=== PATIENT | female | born 1985 | race Caucasian/White ===

== ENCOUNTER 2019-05-12 12:49 | Emergency (ER) | payer SELFPAY | END 2019-05-12 15:25 | disposition home or self-care (01) | PROVIDERS: Emergency Provider Family Medicine; Visit Provider Family Medicine | DX: R00.2 Palpitations (principal); S22.42XA Multiple fractures of ribs, left side, initial encounter for closed fracture; S22.22XA Fracture of body of sternum, initial encounter for closed fracture; J01.90 Acute sinusitis, unspecified; V89.2XXA Person injured in unspecified motor-vehicle accident, traffic, initial encounter; Z86.73 Personal history of transient ischemic attack (TIA), and cerebral infarction without residual deficits; Z85.828 Personal history of other malignant neoplasm of skin; F17.210 Nicotine dependence, cigarettes, uncomplicated; Z88.7 Allergy status to serum and vaccine | CPT/HCPCS: 36415; 71045; 71275; 80053; 84439; 84443; 84484; 85025; 85378; 93005; 96374; 96375; 99284; J2405; J3010; Q9967 ==

== ENCOUNTER 2019-08-19 13:02 | Outpatient (CLI) | payer BC, OTHER, SELFPAY ==
--- NOTE | 2019-08-19 13:30 | US_ITS ---
WS: [id number] EARLY OBSTETRICAL ULTRASOUND (<14 WEEKS). HISTORY: UNCERTAIN DATES COMPARISON: None available. Single intrauterine gestational sac is identified. Cardiac activity at 157 BPM. [place]-rump length adrianne sures 5.0 cm which corresponds to a gestation of 11w5d. Normal-appearing yolk sac and amnion demonstr ated. Small subchorionic hemorrhage measures 1.6 x 1.8 x 0.6 cm.subchorionic hemorrhage. No free fluid. LEFT ovary contains a corpus luteum. RIGHT ovary not visualized. Cervix is closed. US/US OB <= 14 weeks fetus [id number] IMPRESSION: 1. Single intrauterine gestation of 11 weeks 5 days with an EDC of 03/04/2020. 2. Small subchorionic hemorrhage.
== END 2019-08-19 13:03 | disposition home or self-care (01) ==
LOC: RADWPI 13:16
PROVIDERS: Visit Provider Family Medicine
DX: Z36.87 Encounter for antenatal screening for uncertain dates (principal); Z3A.11 11 weeks gestation of pregnancy; O46.92 Antepartum hemorrhage, unspecified, second trimester
CPT/HCPCS: 76801

== ENCOUNTER 2019-10-20 15:02 | Outpatient (CLI) | payer BC, OTHER, SELFPAY ==
--- NOTE | 2019-10-20 15:10 | US_ITS ---
WS: [id number] OBSTETRICAL ULTRASOUND COMPLETE HISTORY: SUPERVISION OF ELDERLY MULTIGRAVIDA COMPARISON: 08/19/2019 Single intrauterine gestation in breech presentation. Cervix is Closed and normal length. Cervical length is 5.1 cm. Normal amount of amniotic fluid surrounds the fetus. Placenta: Anterior, no previa or abruption. Placenta grade 0 Heart: 141 BPM. Intra-atrial septum is difficult to visualize. Interventricular septum is present. Anatomy: Intracranial structures and spine are normal. Abnormal appearance of the anterior abdo rimma wall. There is herniation of bowel loops involving the umbilicus. Consistent with gastroschisis . Stomach and urinary bladder are negative. Kidneys are poorly visualized. Three-vessel cord is prese nt. 4 extremities are present. profile: Unremarkable. Gender: Female. measurements: BPD = 5.2 cm = 21w5d HC = 19.6 cm = 21w6d AC = 15.9 cm = 21w0d FL = 3.7 cm = 21w4d EFW: 417 g., Normal amount of amniotic fluid. AGA by ultrasound: 21w4d МАРИЯ by ultrasound: 02/26/2020 US/US OB >= 14 weeks fetus [id number] IMPRESSION: 1. Single intrauterine gestation of 21w4d with an МАРИЯ of 02/26/2020. Appropria te growth since the first ultrasound. 2. Findings consistent with a gastroschisis. Intra-atrial septum is also diffi cult to visualize. Poor visualization of the kidneys. Anticipate follow-up with maternal medicine.
== END 2019-10-20 15:03 | disposition home or self-care (01) ==
LOC: RAD 15:08
PROVIDERS: PCP Family Medicine; Visit Provider Family Medicine
DX: O09.521 Supervision of elderly multigravida, first trimester (principal); Z3A.21 21 weeks gestation of pregnancy
CPT/HCPCS: 76805

== ENCOUNTER 2019-12-30 10:12 | Outpatient (CLI) | payer BC, SELFPAY ==
[2019-12-30] VITALS (7 sets, daily range): BP systolic 0–108; BP diastolic 0–72; PULSE 80–85; RESP 16; TEMP 36.6; BMI 31.6
== END 2019-12-30 12:50 | disposition home or self-care (01) ==
LOC: OPOB 10:24 → OBGYN 10:25
PROVIDERS: PCP Family Medicine; Visit Provider Obstetrics & Gynecology
DX: O09.93 Supervision of high risk pregnancy, unspecified, third trimester (principal); O35.8XX0 Maternal care for other (suspected) fetal abnormality and damage, not applicable or unspecified; Z34.90 Encounter for supervision of normal pregnancy, unspecified, unspecified trimester; Z3A.30 30 weeks gestation of pregnancy
CPT/HCPCS: 59025; 80307; 84315; 99211

== ENCOUNTER 2020-02-13 10:19 | Outpatient (CLI) | payer BC, SELFPAY ==
[2020-02-13 10:19] VITALS: BMI 33.7
[2020-02-13 11:03] VITALS: BP 102/68; PULSE 90
[2020-02-13 11:11] VITALS: RESP 16; TEMP 36.6
[2020-02-13 11:14] VITALS: BP 102/68; PULSE 90; RESP 16; TEMP 36.6
--- NOTE | 2020-02-13 11:51 | PC.NURSE ---
Pt educated to return to L&D if contractions are 5 minutes apart or closer and/or if they are becoming stronger in strength, if water breaks, if having vaginal bleeding or for any concerns with movement. Keep all scheduled appointments. Instructed pt of she has contractions she should drink plenty of water, take tylenol and lie down, if contractions do not go away pt should be evaluated. Pt verbalized understanding.
== END 2020-02-13 11:18 | disposition home or self-care (01) ==
LOC: OPOB 10:31 → OBGYN 10:34
PROVIDERS: Visit Provider Obstetrics & Gynecology
DX: O26.899 Other specified pregnancy related conditions, unspecified trimester (principal); Z3A.00 Weeks of gestation of pregnancy not specified; Q79.2 Exomphalos
CPT/HCPCS: 59025

== ENCOUNTER 2020-02-19 15:42 | Outpatient (CLI) | payer BC, SELFPAY ==
[2020-02-19 15:53] VITALS: BP 111/74; PULSE 98
[2020-02-19 15:54] VITALS: BMI 33.7
[2020-02-19 16:08] VITALS: BP 102/77; PULSE 102; RESP 18; TEMP 36.8
[2020-02-19 16:23] VITALS: BP 105/74; PULSE 93
== END 2020-02-19 16:26 | disposition home or self-care (01) ==
LOC: OPOB 15:43 → OBGYN 15:55
PROVIDERS: Visit Provider Pharmacist
DX: O26.899 Other specified pregnancy related conditions, unspecified trimester (principal); Z3A.00 Weeks of gestation of pregnancy not specified
CPT/HCPCS: 59025; 84315

== ENCOUNTER 2020-02-23 12:15 | Outpatient (CLI) | payer BC, SELFPAY ==
[2020-02-23 12:27] VITALS: BP 114/78; PULSE 92
[2020-02-23 12:32] VITALS: RESP 17; TEMP 36.9
[2020-02-23 12:33] VITALS: BMI 34.0
[2020-02-23 12:46] VITALS: BP 107/60; PULSE 83
== END 2020-02-23 12:54 | disposition home or self-care (01) ==
LOC: OPOB 12:20 → OBGYN 12:22
PROVIDERS: Visit Provider Obstetrics & Gynecology
DX: O09.93 Supervision of high risk pregnancy, unspecified, third trimester (principal); O35.8XX0 Maternal care for other (suspected) fetal abnormality and damage, not applicable or unspecified; Z3A.38 38 weeks gestation of pregnancy
CPT/HCPCS: 59025; 84315; 99211

== ENCOUNTER 2020-04-24 16:07 | Emergency (ER) | payer BC, MEDICAID, SELFPAY ==
[2020-04-24 16:11] VITALS: BP 131/96; PULSE 93; RESP 16; TEMP 36.5; O2SAT 97
--- NOTE | 2020-04-24 16:18 | ED_ITS ---
HPI - Skin/Abscess/Foreign Bdy General: Chief complaint: Skin/Abscess/Foreign Body Stated complaint: Abscess on Inner Thigh Time Seen by Provider: 04/24/20 16:11 History of Present Illness: HPI narrative: 34-year-old female presents emergency room with what she described as an abscess in the bikini line from personal shaving.'s been increasing over the last weeks she has been using topical mupirocin with no apparent effect. No fever sweats or chills no other problems. MD complaint: abscess/boil Onset (ago): day(s) Location: genitals Severity: moderate Quality: burning Pain Consistency: constant Relieving factors: none Exacerbating factors: none Context: none Associated symptoms: Deny arthralgias, chills, cough, fever(s), itching, myalgias, nausea, rigidity, short of breath or vomiting Treatments prior to arrival: antibiotic (Topical) Review of Systems Const: Denies: fever(s) or chills ENMT: Denies: throat pain, ear or mastoid pain, nasal discharge or nasal conge stion Card: Denies: chest pain, edema, dyspnea on exertion or orthopnea Resp: Denies: dyspnea, productive cough or non-productive cough GI: Denies: nausea or vomiting : Denies: flank pain, difficulty voiding, dysuria, urinary frequency or urinary urgency Skin/Breast: Denies: rash or pruritus PFSH ED PFSH: Medical History (Updated 04/24/20 @ 16:41 by Jeronimo Tracy DO) examination following vaginal delivery Supervision of high risk in third trimester Family History Father Hypertension Heart attack, Onset Age: 55 Hyperlipidemia Mother Thyroid condition Grandmother Breast cancer maternal Stroke paternal Family/Other Breast cancer maternal great aunt Grandfather Diabetes paternal Denies family history of Clotting disorder Anesthesia complication Bleeding disorder Social History (Updated 04/12/20 @ 14:38 by Deyanira Rivas RN) Smoking and tobacco status: current some day smoker cigarettes [ Other cigarette details: 1-2 cigarettes/day ] Alcohol intake: current Alcohol intake frequency: holidays/special occasions only Alcohol type: wine Physical Exam Const: COMMON NORMALS: no acute distress GENERAL APPEARANCE: cooperative and comfortable ORIENTATION/CONSCIOUSNESS: Yes awake, Yes oriented to person, Yes oriented to place and Yes oriented to time Resp: COMMON NORMALS: normal respiratory effort, No retractions, No use of accessory muscles and clear to auscultation bilaterally AUSCULTATION: clear to auscultation bilaterally Cardio: COMMON NORMALS: regular rate, regular rhythm and No murmurs present (Cardio) RATE: regular rate RHYTHM: regular rhythm Neuro: SENSORIUM/ORIENTATION: Yes oriented to person, Yes oriented to place and Yes oriented to time Skin: NARRATIVE SKIN EXAM: Patient has approximately 1 x 2 cm abscess proximal right thigh just distal to the groin crease. Was isolated by ultrasound and confirmed. Procedures Abscess I/D Site: lower extremity (Proximal thigh) Side (if applicable): right Local Anesthetic: lidocaine 1% Amount of anesthesia used (mL): 3 Technique: incised with #11 blade Amount of fluid expressed (mL): 3 Irrigation: No Packing used?: none Course Vital Signs: Vital signs: Vital Signs Temperature 97.7 F 04/24/20 16:11 Pulse Rate 91 04/24/20 16:54 Respiratory Rate 18 04/24/20 16:54 Blood Pressure 129/94 04/24/20 16:54 Pulse Oximetry 97 04/24/20 16:54 MDM - Skin/Abscess/Foreign Bdy MDM Narrative: Medical decision making narrative: Wound dressed wound care instructions given follow-up primary care next week return if his problems Discharge Plan Discharge Patient Disposition: Home Clinical Impression: Abscess of skin or subcutaneous tissue Condition: Stable Prescriptions: New hydrocodone-acetaminophen 5-325 mg tablet 1 tab PO Q6H PRN (Reason: pain) Qty: 15 RF: 0 Bactrim DS 800-160 mg tablet 1 tab PO Q6H Qty: 14 RF: 0 Centany 2 % ointment 1 applic topical TID Qty: 22 RF: 0 No Action prenat.vits,aga,[id number] Tablet 1 tab PO DAILY RF: 0 buspirone 10 mg tablet 5 mg PO TID PRN (Reason: Anxiety) RF: 0 Discharge Orders: Discharge ED (Routine); Ordered 04/24/20 Ordered By: Jeronimo Tracy Coding Level of Care Code 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
[2020-04-24 16:54] VITALS: BP 129/94; PULSE 91; RESP 18; O2SAT 97
== END 2020-04-24 16:56 | disposition home or self-care (01) ==
PROVIDERS: Emergency Provider Family Medicine
DX: L02.415 Cutaneous abscess of right lower limb (principal); F17.210 Nicotine dependence, cigarettes, uncomplicated
CPT/HCPCS: 10060; 12345; 87070; 87075; 87205; 99281; 99282

== ENCOUNTER → 2020-06-03 10:06 | Outpatient (BNVA) | payer BC, MEDICAID, SELFPAY | PROVIDERS: Visit Provider Obstetrics & Gynecology | DX: Z11.59 Encounter for screening for other viral diseases (principal) | CPT/HCPCS: 87635 ==

== ENCOUNTER 2020-06-09 09:07 | Day surgery (SDC) | payer BC, MEDICAID, SELFPAY ==
[2020-06-07 11:17] VITALS: BMI 30.4
[2020-06-07 11:36] LABS: Add Urine Microscopic? NO
[2020-06-07 11:39] LABS: Basophils # 0.1 10^3/uL (0.0-0.1); Basophils % 0.6 %; Eosinophils # 0.2 10^3/uL (0.0-0.8); Eosinophils % 1.8 %; Hemoglobin 13.6 g/dL (11.5-15.3); Lymphocytes # 3.2 10^3/uL (0.8-4.8); Lymphocytes % 27.4 %; Mean Corpuscular HGB Conc 32.4 g/dL (30.0-36.0); Mean Corpuscular Hemoglobin 31.6 pg (28.0-34.0); Mean Corpuscular Volume 97.4 fL (81-99); Mean Platelet Volume 9.5 fL (7.4-10.4); Monocytes # 0.8 10^3/uL (0.2-0.9); Monocytes % 7.2 %; Neutrophils # 7.25 10^3/uL (1.8-7.7); Neutrophils % 62.7 %; Nucleated Red Blood Cells % 0 %; Platelet Count 468 10^3/cmm (130-400); Red Blood Count 4.31 10^6/uL (4.1-5.3); Red Cell Distribution Width 13.1 % (12.1-15.1); White Blood Count 11.6 10^3/uL (4.0-10.0)
[2020-06-07 11:58] LABS: Anion Gap 12.5 (5-19); Blood Urea Nitrogen 11 mg/dL (6-20); Calcium 9.3 mg/dL (8.5-10.5); Carbon Dioxide 27 mmol/L (22-29); Chloride 106 mmol/L (98-107); Glomerular Filtration Rate 140.4 mL/min (90-130); Glucose 94 mg/dL (65-115); Osmolality Calculated 291 mOsm/kg (285-295); Potassium 4.5 mmol/L (3.5-5.1); Sodium 141 mmol/L (136-145)
[2020-06-07 12:25] LABS: Bilirubin Urine Neg (Negative); Blood Urine Neg (Negative); Glucose Urine UA Norm (Normal); Ketones Urine Negative (Negative); Leukocyte Esterase Urine Negative (Negative); Nitrate Urine Negative (Negative); Protein Urine Neg (Negative); Specific Gravity, Urine 1.005 (1.005-1.030); Urine Appearance Clear (CLEAR); Urine Color Straw (Yellow); Urobilinogen Urine Norm (Negative); pH Urine 6.5 (5-7)
--- NOTE | 2020-06-07 14:17 | ANES.PREANE2 ---
Pre-Anesthetic Assessment Pre-Anesthetic Assessment: Height/Weight: Height 1.52 m Weight 70.76 kg Preop Diagnosis: Desire permanent sterilization Proposed Procedure: Operation Date: 06/09/20 12:00 Proposed Procedures p Laparoscopic bilateral tubal fulguration with salpingectomy (94076) z30.2(Not Applicable) - Tom Stanton MD Was Beta Luis Carlos taken within 24 hours: N/A Social: Social History: No alcohol and No tobacco Comment: hx of smoking Exam: Pre-Anes Outpt Exam: alert, oriented x 3, clear to auscultation bilaterally and regular rate & rhythm Airway: Submandibular: WNL Cervical ROM: WNL MP: 2 Additional comments: poor dentition History/ROS: No significant history except as noted Neuropsych: Neuropsych: Anxiety and Depression Anesthetic Plan: ASA status: 2 Anesthesia: General Risk of > 500 ml blood loss (7ml/kg in children): No PFSH Anesthesia PFSH: Medical History examination following vaginal delivery Supervision of high risk in third trimester Family History Father Hypertension Heart attack, Onset Age: 55 Hyperlipidemia Mother Thyroid condition Grandmother Breast cancer maternal Stroke paternal Family/Other Breast cancer maternal great aunt Grandfather Diabetes paternal Denies family history of Clotting disorder Anesthesia complication Bleeding disorder Social History (Updated 06/07/20 @ 10:07 by Deyanira Rivas RN) Smoking and tobacco status: former smoker Alcohol intake: former Substance/Drug Use: never Current gender identity: Female Female Reproductive History: Date of last menstrual period: 06/13/19 Data Anesthesia CBC & Chem 7: 06/07/20 11:25 06/07/20 11:25 Other Labs: Laboratory Results - last 48 hr 06/07/20 06/07/20 06/07/20 11:25 11:25 11:25 WBC 11.6 H RBC 4.31 Hgb 13.6 Hct 42.0 MCV 97.4 MCH 31.6 MCHC 32.4 RDW 13.1 Plt Count 468 H MPV 9.5 Neut % (Auto) 62.7 Lymph % (Auto) 27.4 [place] % (Auto) 7.2 Eos % (Auto) 1.8 Baso % (Auto) 0.6 Neut # (Auto) 7.25 Lymph # (Auto) 3.2 [place] # (Auto) 0.8 Eos # (Auto) 0.2 Baso # (Auto) 0.1 Nucleated RBC % (auto) 0 Nucleated RBCs # 0.0 Sodium 141 Potassium 4.5 Chloride 106 Carbon Dioxide 27 Anion Gap 12.5 BUN 11 Creatinine 0.5 GFR Calculation 140.4 H Glucose 94 Calculated Osmolality 291 Calcium 9.3 Urine Color Urine Appearance Urine pH Ur Specific [place] Urine Protein Urine Glucose (UA) Urine Ketones Urine Blood Urine Nitrate Urine Bilirubin Urine Urobilinogen Ur Leukocyte Esterase Blood Type A Positive Rho(D) Type Positive Antibody Screen Negative 06/07/20 11:30 WBC RBC Hgb Hct MCV MCH MCHC RDW Plt Count MPV Neut % (Auto) Lymph % (Auto) [place] % (Auto) Eos % (Auto) Baso % (Auto) Neut # (Auto) Lymph # (Auto) [place] # (Auto) Eos # (Auto) Baso # (Auto) Nucleated RBC % (auto) Nucleated RBCs # Sodium Potassium Chloride Carbon Dioxide Anion Gap BUN Creatinine GFR Calculation Glucose Calculated Osmolality Calcium Urine Color Straw Urine Appearance Clear Urine pH 6.5 Ur Specific [place] 1.005 Urine Protein Neg Urine Glucose (UA) Norm Urine Ketones Negative Urine Blood Neg Urine Nitrate Negative Urine Bilirubin Neg Urine Urobilinogen Norm Ur Leukocyte Esterase Negative Blood Type Rho(D) Type Antibody Screen Cardiac Studies: No Data to Display
[2020-06-09] VITALS (11 sets, daily range): BP systolic 105–133; BP diastolic 71–83; PULSE 59–75; RESP 15–23; TEMP 36.4–37.1; O2SAT 92–98
[2020-06-09 09:58] LABS: OR HCG Qualitative Urine Negative (Negative)
[2020-06-09] MEDS: sodium chloride 0.9% 500 ML IV (10:05)
[2020-06-09] MEDS: scopolamine 1.5 Patch 1 PATCH TRANSDERMA (10:06)
--- NOTE | 2020-06-09 10:18 | P.ANESUD_ITS ---
Pre-Anesthetic Update Pre-Anesthetic Assessment: Date of Surgery/Procedure: 06/09/20 Preop Yvette gnosis: Desire permanent sterilization Proposed Procedure: Operation Date: 06/09/20 10:40 Proposed Procedures p Laparoscopic bilateral tubal fulguration with salpingectomy (57264) z30.2(Not Applicable) - Tom Stanton MD Any changes to Pre-Anesthetic Assessment?: No Last Intake: Intake Last Liquid Date 06/08/20 Last Liquid Time 22:00 Last Solid Date 06/08/20 Last Solid Time 22:00 Labs Last 48hrs: Laboratory Results - last 48 hr 06/07/20 06/07/20 06/07/20 11:09 11:25 11:25 WBC 11.6 H RBC 4.31 Hgb 13.6 Hct 42.0 MCV 97.4 MCH 31.6 MCHC 32.4 RDW 13.1 Plt Count 468 H MPV 9.5 Neut % (Auto) 62.7 Lymph % (Auto) 27.4 [place] % (Auto) 7.2 Eos % (Auto) 1.8 Baso % (Auto) 0.6 Neut # (Auto) 7.25 Lymph # (Auto) 3.2 [place] # (Auto) 0.8 Eos # (Auto) 0.2 Baso # (Auto) 0.1 Nucleated RBC % (a uto) 0 Nucleated RBCs # 0.0 Sodium 141 Potassium 4.5 Chloride 106 Carbon Dioxide 27 Anion Gap 12.5 BUN 11 Creatinine 0.5 GFR Calculation 140.4 H Glucose 94 Calculated Osmolal ity 291 Calcium 9.3 Urine Color Urine Appearance Urine pH Ur Specific Gravit y Urine Protein Urine Glucose (UA) Urine Ketones Urine Blood Urine Nitrate Urine Bilirubin Urine Urobilinogen Ur Leukocyte Yazmin ase Urine HCG, Qual Negative Blood Type Rho(D) Type Antibody Screen 06/07/20 06/07/20 11:25 11:30 WBC RBC Hgb Hct MCV MCH MCHC RDW Plt Count MPV Neut % (Auto) Lymph % (Auto) [place] % (Auto) Eos % (Auto) Baso % (Auto) Neut # (Auto) Lymph # (Auto) [place] # (Auto) Eos # (Auto) Baso # (Auto) Nucleated RBC % (a uto) Nucleated RBCs # Sodium Potassium Chloride Carbon Dioxide Anion Gap BUN Creatinine GFR Calculation Glucose Calculated Osmolal ity Calcium Urine Color Straw Urine Appearance Clear Urine pH 6.5 Ur Specific Gravit y 1.005 Urine Protein Neg Urine Glucose (UA) Norm Urine Ketones Negative Urine Blood Neg Urine Nitrate Negative Urine Bilirubin Neg Urine Urobilinogen Norm Ur Leukocyte Yazmin ase Negative Urine HCG, Qual Blood Type A Positive Rho(D) Type Positive Antibody Screen Negative Vitals: Temperature 98.4 F 06/09/20 09:50 Pulse Rate 70 06/09/20 09:50 Pulse Rhythm 06/09/20 09:51 Respiratory Rate 18 06/09/20 09:50 Blood Pressure 116/81 06/09/20 09:50 Blood Pressure Maria n 92 06/09/20 09:50 Pulse Oximetry 98 06/09/20 09:50 Oxygen Delivery Me thod 06/09/20 09:51 Exam: Pre-Anes Outpt Exam: alert, oriented x 3, clear to auscultation bilaterally and regular rate & rhythm Cardiac Studies: No Data to Display
[2020-06-09] MEDS: sodium chloride 0.9% 1,000 ML 30 ML IV (10:27)
--- NOTE | 2020-06-09 10:39 | W.PM.OPSUD ---
Surgery/Procedure H&P Update DATE OF PROCEDURE: June 09, 2020 DATE H&P PERFORMED: 06/07/20 H&P UPDATE INFORMATION: I have reviewed H&P completed within last 30 days, I have examined patient prior to procedure and No changes to prior documentation PREOP DIAGNOSIS: Desire permanent sterilization PLANNED PROCEDURE: Operation Date: 06/09/20 10:40 Proposed Procedures p Laparoscopic bilateral tubal fulguration with salpingectomy (75037) z30.2(Not Applicable) - oTm Stanton MD
--- NOTE | 2020-06-09 11:40 | P.OP_ITS ---
Operative Report Date of procedure: June 09, 2020 Pre-op Diagnosis: Desire permanent sterilization Post-op diagnosis: same Pathology: Left and right fallopian tubes Surgeon: Tom Stanton MD Anesthesia: General Estimated blood loss (mL): 5 IV fluids (mL): 600 Urine output (mL): 300 Complications: Small uterine perforation at the fundus. Findings: Normal pelvic organs: uterus, tubes and ovaries. Condition: stable Disposition: PACU Brief History: 34-year-old female desires permanent sterilization Procedure: After informed consent, the patient was taken to the operating room where general anesthesia was administered. A time out was performed. She was placed in the dorsal lithotomy position and prepped and draped in sterile fashion. The patient was examined under anesthesia and found to have a normal uterus with normal adnexa. A weighted speculum was placed in the vagina, and the anterior lip of cervix was grasped with the single toothed tenaculum. The uterus was sounded to a measure 8 cm. A uterine manipulator was advanced into the endoc ervical canal and its bulb filled with NS. The speculum was removed from the vagina. An intraumbilical incision was made with a scalpel. While tenting up on the abdomen, a Verres needle was admitted into the intra-abdominal cavity. A saline drop test was performed and noted to be within normal limits. Pneumoperitoneum was attained with 4 liters of carbon dioxide. The Verres needle was removed. The 2.7 mm Verres sleeve left intraumbilical Laparoscopic confirmation of location was achieved, A second incision was made 2 cm above the symphysis pubis, and a 5 mm trocar and sleeve were admitted into the abdomen under direct, laparoscopic visualization without complication. A survey revealed normal pelvic and abdominal anatomy. But a small perforation incision noted at the uterus fundus. The perforation was monitor with no bleeding noted. A Voyant forceps was advanced through the second trocar sleeve, and left Fallopian tube was identified, followed out to the fimbriated end, and grasped approximately 4 cm from the cornua region. The electrocoagulation current was applied to the tube until signal by the Voyant system and good blanching noted at the site of application the the section was transcepted. No bleeding was observed from the mesosalpinx. The Voyant forceps was directed toward the right Fallopian tube and was applied in a similar fashion to the opposite tube. Carbon dioxide was allowed to escape from the abdomen. The instruments were removed, and skin incison were closed with 3-o Vicryl. The instruments were removed from the vagina, and excellent hemostasis was noted. Th e patient tolerated the procedure well, and sponge, lap and needle count were correct times two. The patient taken to the recovery room in good condition.
[2020-06-09] MEDS: meperidine 50 mg/mL INJ 12.5 MG IVP (11:59)
--- NOTE | 2020-06-09 12:09 | SUR.PHASEI ---
1159 PT AWAKES TO VOICE PT SHIVERING UNCONTROLLED WARM BLANKETS TO PT X 4 PT AWAKES AND VERBALIZED TO DR RICE THAT SHE IS NOT ALLERGIC TO TYLENOL , AND YES SHE TAKES [facility] PAIN MED BEFORE. VSS. IV PATENT ABD SOFT WITH 2 SITES D/I SEE MED GIVEN FOR PT RESTLESSNES AND SHIVERING 1211 PT SLEEPS QUIETLY VSS NO DISTRESS NOTED PT WITH GOOD RESP EFFORT SATS 92% ON RA.
[2020-06-09] MEDS: HYDROcodone-acetaminophen 5-325 mg Tablet 1 TAB PO (12:47)
--- NOTE | 2020-06-09 13:46 | ANE.PACU2 ---
Inpatient post-anesthesia follow up: Airway intact: Yes Vital signs: Temperature 97.8 F Pulse Rate 62 Respiratory Rate 18 Blood Pressure 107/73 Pulse Oximetry 98 Oxygen Delivery Me thod Room Air Oxygen Flow Rate 8 Fraction of Inspir ed Oxygen Hydration adequate: Yes Pain level: 2 Mental status: Baseline
== END 2020-06-09 13:26 | disposition home or self-care (01) ==
PROVIDERS: Visit Provider Obstetrics & Gynecology
PROC: (CPT 58661; principal; 2020-06-09 10:40)
DX: Z30.2 Encounter for sterilization (principal); Z87.891 Personal history of nicotine dependence
CPT/HCPCS: 58661; 12345; 36415; 80048; 81003; 81025; 84703; 85025; 86850; 86900; 88302; J0690; J1100; J1200; J2175; J2250; J2405; J2704; J2710; J3010; J3490; J7030; J7040

== ENCOUNTER → 2020-07-02 08:27 | Outpatient (BNVA) | payer BC, MEDICAID, SELFPAY | PROVIDERS: Visit Provider Psychiatry & Neurology Psychiatry | DX: F33.2 Major depressive disorder, recurrent severe without psychotic features (principal); F41.1 Generalized anxiety disorder; F43.12 Post-traumatic stress disorder, chronic; S06.9X9A Unspecified intracranial injury with loss of consciousness of unspecified duration, initial encounter | CPT/HCPCS: 99204 ==

== ENCOUNTER → 2020-07-29 08:07 | Outpatient (BNVA) | payer BC, MEDICAID, SELFPAY | PROVIDERS: Visit Provider Psychiatry & Neurology Psychiatry | DX: F43.12 Post-traumatic stress disorder, chronic (principal); F41.1 Generalized anxiety disorder; F33.2 Major depressive disorder, recurrent severe without psychotic features; S06.9X9A Unspecified intracranial injury with loss of consciousness of unspecified duration, initial encounter | CPT/HCPCS: 99214 ==

== ENCOUNTER → 2020-08-30 07:53 | Outpatient (BNVA) | payer BC, MEDICAID, SELFPAY | PROVIDERS: Visit Provider Psychiatry & Neurology Psychiatry | DX: S06.9X9A Unspecified intracranial injury with loss of consciousness of unspecified duration, initial encounter (principal); F43.12 Post-traumatic stress disorder, chronic; F41.1 Generalized anxiety disorder; F33.2 Major depressive disorder, recurrent severe without psychotic features | CPT/HCPCS: 99213 ==

== ENCOUNTER → 2020-09-29 07:56 | Outpatient (BNVA) | payer BC, MEDICAID, SELFPAY | PROVIDERS: Visit Provider Psychiatry & Neurology Psychiatry | DX: F43.12 Post-traumatic stress disorder, chronic (principal); F41.1 Generalized anxiety disorder; F33.2 Major depressive disorder, recurrent severe without psychotic features; S06.9X9A Unspecified intracranial injury with loss of consciousness of unspecified duration, initial encounter | CPT/HCPCS: 99214 ==

== ENCOUNTER → 2020-10-12 12:43 | Outpatient (BNVA) | payer BC, MEDICAID, SELFPAY | PROVIDERS: Visit Provider Counselor Mental Health | DX: S06.9X9A Unspecified intracranial injury with loss of consciousness of unspecified duration, initial encounter (principal); F43.12 Post-traumatic stress disorder, chronic; F41.1 Generalized anxiety disorder; F33.1 Major depressive disorder, recurrent, moderate | CPT/HCPCS: 90834 ==

== ENCOUNTER → 2020-10-21 07:50 | Outpatient (BNVA) | payer BC, MEDICAID, SELFPAY | PROVIDERS: Visit Provider Counselor Mental Health | DX: S06.9X9A Unspecified intracranial injury with loss of consciousness of unspecified duration, initial encounter (principal); F43.12 Post-traumatic stress disorder, chronic; F41.1 Generalized anxiety disorder; F33.2 Major depressive disorder, recurrent severe without psychotic features | CPT/HCPCS: 90834 ==

== ENCOUNTER → 2020-11-12 07:48 | Outpatient (BNVA) | payer BC, OTHER, SELFPAY | PROVIDERS: Visit Provider Counselor Mental Health | DX: S06.9X9A Unspecified intracranial injury with loss of consciousness of unspecified duration, initial encounter (principal); F43.12 Post-traumatic stress disorder, chronic; F41.1 Generalized anxiety disorder; F33.2 Major depressive disorder, recurrent severe without psychotic features | CPT/HCPCS: 90834 ==

== ENCOUNTER → 2020-11-25 11:09 | Outpatient (BNVA) | payer BC, OTHER, SELFPAY | PROVIDERS: Visit Provider Psychiatry & Neurology Psychiatry | DX: F43.12 Post-traumatic stress disorder, chronic (principal); F41.1 Generalized anxiety disorder; F33.2 Major depressive disorder, recurrent severe without psychotic features; S06.9X9A Unspecified intracranial injury with loss of consciousness of unspecified duration, initial encounter | CPT/HCPCS: 99214 ==

== ENCOUNTER → 2020-11-29 08:53 | Outpatient (BNVA) | payer BC, OTHER, SELFPAY | PROVIDERS: Visit Provider Counselor Mental Health | DX: S06.9X9A Unspecified intracranial injury with loss of consciousness of unspecified duration, initial encounter (principal); F43.12 Post-traumatic stress disorder, chronic; F41.1 Generalized anxiety disorder; F33.2 Major depressive disorder, recurrent severe without psychotic features | CPT/HCPCS: 90834 ==

== ENCOUNTER → 2020-12-06 07:50 | Outpatient (BNVA) | payer BC, OTHER, SELFPAY | PROVIDERS: Visit Provider Counselor Mental Health | DX: S06.9X9A Unspecified intracranial injury with loss of consciousness of unspecified duration, initial encounter (principal); F43.12 Post-traumatic stress disorder, chronic; F41.1 Generalized anxiety disorder; F33.2 Major depressive disorder, recurrent severe without psychotic features | CPT/HCPCS: 90834 ==

== ENCOUNTER → 2020-12-13 07:14 | Outpatient (BNVA) | payer BC, OTHER, SELFPAY | PROVIDERS: Visit Provider Counselor Mental Health | DX: S06.9X9A Unspecified intracranial injury with loss of consciousness of unspecified duration, initial encounter (principal); F43.12 Post-traumatic stress disorder, chronic; F41.1 Generalized anxiety disorder; F33.2 Major depressive disorder, recurrent severe without psychotic features | CPT/HCPCS: 90834 ==

== ENCOUNTER → 2020-12-20 07:42 | Outpatient (BNVA) | payer BC, OTHER, SELFPAY | PROVIDERS: Visit Provider Counselor Mental Health | DX: S06.9X9A Unspecified intracranial injury with loss of consciousness of unspecified duration, initial encounter (principal); F43.12 Post-traumatic stress disorder, chronic; F41.1 Generalized anxiety disorder; F33.2 Major depressive disorder, recurrent severe without psychotic features | CPT/HCPCS: 90834 ==

== ENCOUNTER → 2020-12-29 08:34 | Outpatient (BNVA) | payer BC, OTHER, SELFPAY | PROVIDERS: Visit Provider Counselor Mental Health | DX: S06.9X9A Unspecified intracranial injury with loss of consciousness of unspecified duration, initial encounter (principal); F43.12 Post-traumatic stress disorder, chronic; F41.1 Generalized anxiety disorder; F33.2 Major depressive disorder, recurrent severe without psychotic features | CPT/HCPCS: 90834 ==

== ENCOUNTER → 2020-12-30 07:20 | Outpatient (BNVA) | payer BC, OTHER, SELFPAY | PROVIDERS: Visit Provider Psychiatry & Neurology Psychiatry | DX: F43.12 Post-traumatic stress disorder, chronic (principal); F41.1 Generalized anxiety disorder; F33.2 Major depressive disorder, recurrent severe without psychotic features; S06.9X9A Unspecified intracranial injury with loss of consciousness of unspecified duration, initial encounter | CPT/HCPCS: 99213 ==

== ENCOUNTER → 2021-01-04 09:01 | Outpatient (BNVA) | payer BC, OTHER, SELFPAY | PROVIDERS: Visit Provider Counselor Mental Health | DX: S06.9X9A Unspecified intracranial injury with loss of consciousness of unspecified duration, initial encounter (principal); F43.12 Post-traumatic stress disorder, chronic; F41.1 Generalized anxiety disorder; F33.2 Major depressive disorder, recurrent severe without psychotic features | CPT/HCPCS: 90832 ==

== ENCOUNTER → 2021-01-11 10:45 | Outpatient (BNVA) | payer BC, OTHER, SELFPAY | PROVIDERS: Visit Provider Counselor Mental Health | DX: S06.9X9A Unspecified intracranial injury with loss of consciousness of unspecified duration, initial encounter (principal); F43.12 Post-traumatic stress disorder, chronic; F41.1 Generalized anxiety disorder; F33.2 Major depressive disorder, recurrent severe without psychotic features | CPT/HCPCS: 90834 ==

== ENCOUNTER 2021-01-23 15:28 | Emergency (ER) | payer BC, MEDICAID, SELFPAY ==
[2021-01-23 15:48] VITALS: BP 127/86; PULSE 75; RESP 15; TEMP 36.7; O2SAT 96; BMI 31.2
--- NOTE | 2021-01-23 17:09 | XRR_ITS ---
PROCEDURE INFORMATION: Exam: XR Left Shoulder Exam date and time: 01/23/2021 5:09 PM Age: 35 years old Clinical indication: Injury or trauma; Other: Kicked by cow; Blunt trauma (contusions or hematomas); Shoulder; Left TECHNIQUE: Imaging protocol: XR Left shoulder. Views: 2 or more views. COMPARISON: CR Chest 1 [place] [id number] 05/12/2019 1:42 PM FINDINGS: Bones/joints: Normal. Soft tissues: Normal. XR/XR shoulder LT min 2V* [id number] IMPRESSION: No acute findings.
--- NOTE | 2021-01-23 17:09 | XRR_ITS ---
PROCEDURE INFORMATION: Exam: XR Left Elbow Exam date and time: 01/23/2021 5:09 PM Age: 35 years old Clinical indication: Injury or trauma; Other: Kicked by cow; Blunt trauma (contusions or hematomas); Elbow; Left TECHNIQUE: Imaging protocol: XR Left elbow. Views: 3 or more views. COMPARISON: CR XR shoulder LT min 2V* [id number] 01/23/2021 5:11 PM FINDINGS: Bones/joints: Normal. Soft tissues: Normal. XR/XR elbow LT min 3V* [id number] IMPRESSION: No acute findings.
--- NOTE | 2021-01-23 19:13 | W.ED.EXTPRO ---
HPI - Extremity Problem General: Chief complaint: Extremity Injury, Upper Stated complaint: KICKED BY COW IN L SHOULDER/HAND DRAWN UP Time Seen by Provider: 01/23/21 19:12 History of Present Illness: HPI Narrative: Patient is a 35-year-old female comes to the ED with left arm pain. Patient says injury occurred just prior to arrival. 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 The cow threw its head against patient's left arm hitting patient's left elbow area and pinning it against a fence. She now has 7 out of 10 pain in her left elbow. It radiates up into her left shoulder. She has some swelling and ecchymosis as well in her left elbow. Associated symptoms: Deny chest pain, fever(s) or rash Review of Systems Const: Denies: fever(s), chills or fatigue Eyes: Denies: change in vision or eye discomfort ENMT: Denies: throat pain, odynophagia, nasal discharge or nasal congestion Card: Denies: chest pain, palpitations, edema, swelling of feet/ankles, dyspnea on exertion or orthopnea Resp: Denies: dyspnea, productive cough or non-productive cough GI: Denies: abdominal pain, nausea, vomiting, diarrhea, constipation or hematochezia : Denies: flank pain, dysuria or hematuria Musc: Reports: extremity pain (left elbow pain) and extremity swelling (left elbow); Denies: neck pain or back pain Skin/Breast: Denies: rash or new lesions Neuro: Denies: headache(s), numbness in extremities or weakness in extremities PFSH ED PFSH: Medical History Aftercare following surgery of the genitourinary system examination following vaginal delivery Psychiatric care Supervision of high risk in third trimester Family History Father Hypertension Heart attack, Onset Age: 55 Hyperlipidemia Mother Thyroid condition Grandmother Breast cancer maternal Stroke paternal Family/Other Breast cancer maternal great aunt Grandfather Diabetes paternal Denies family history of Clotting disorder Anesthesia complication Bleeding disorder Social History Smoking and tobacco status: current every day smoker cigarettes [ Other cigarette details: 1 cigarette/day ] Alcohol intake: former Female Reproductive History: Date of last menstrual period: 01/12/21 Physical Exam Const: COMMON NORMALS: no acute distress, patient oriented x3, healthy appearing and alert GENERAL APPEARANCE: cooperative and comfortable HENMT: COMMON NORMALS: normocephalic HEAD & SCALP: normocephalic MOUTH: Normal oral and palatal mucosa present THROAT: posterior oropharynx normal and uvula midline Neck/C-Spine: COMMON NORMALS: supple GENERAL: Yes normal visual inspection Resp: COMMON NORMALS: normal respiratory effort, No retractions, No use of accessory muscles and clear to auscultation bilaterally AUSCULTATION: clear to auscultation bilaterally Cardio: COMMON NORMALS: regular rate, regular rhythm, S1 normal heart sound present, S2 normal heart sound present, No gallops present (Cardio), No clicks present (Cardio), No murmurs present (Cardio) and Peripheral pulses 2+ throughout RATE: regular rate RHYTHM: regular rhythm HEART SOUNDS: S1 normal heart sound present and S2 normal heart sound present PERIPHERAL PULSES: Peripheral pulses 2+ throughout GI: COMMON NORMALS: Normal to inspection, nondistended, normoactive bowel sounds present, Soft to palpation, non-tender and no masses PALPATION: Yes Soft to palpation : COMMON NORMALS: Yes no CVA tenderness BLADDER/KIDNEY EXAM: Yes no CVA tenderness Back/Pelvis: COMMON NORMALS: no CVA tenderness Extremity: GENERAL: Yes normal exam except as noted LEFT UPPER EXTREMITY: Yes elbow joint Left elbow: Yes inspection (Swelling and ecchymosis. No deformity noted), Yes palpation (Tenderness over lateral aspect of elbow), Yes ROM (limited due to pain) and Yes neurovascular exam (intact) Neuro: COMMON NORMALS: patient oriented x3 and moves all extremities SENSORIUM/ORIENTATION: Yes alert Skin: GENERAL SKIN EXAM: dry skin Course Vital Signs: Vital signs: Vital Signs Temperature 98.0 F 01/23/21 15:48 Pulse Rate 69 01/23/21 20:37 Respiratory Rate 15 01/23/21 15:48 Blood Pressure 126/93 01/23/21 20:37 Pulse Oximetry 99 01/23/21 20:37 MDM - Extremity (Nontraumatic) MDM Narrative: Medical decision making narrative: Patient is a 35-year-old female comes to the ED with left elbow pain. Patient was hit by her L in the left shoulder and left elbow region. Exam shows a healthy appearing 35-year-old female no acute distress. She has some ecchymosis and swelling of her left elbow. Limited range of motion in elbow due to pain. Neurovascular tact distally. X-ray of left elbow and left shoulder show no acute fractures or findings. Patient diagnosed with left elbow contusion and discharged home with a sling to help with pain and comfort while healing. She was told to ice left elbow and she was sent home with a written prescription for hydrocodone to help with acute breakout pain. Follow-up with PCP in 7 to 10 days for reevaluation. Return to ED precautions given. Patient understood agree with plan. Imaging Data^: Xray Ortho: Attestation: I personally reviewed and interpreted this imaging study as follows: Radiologist's impression: [facility] [address] [place] [id number] XRay Report Signed Patient: Arabella Carrion Unit #: [id number] : 1985 Age/Sex: 35 / F ADM Date: 01/23/21 Loc: ER Room/Bed: Attending Dr: Ordering Provider/Ordering MD: Dakota Arenas Date of Service: 01/23/21 Procedure(s): XR shoulder LT min 2V* 07229 Accession Number(s): [id number] Report Number: [id number] PROCEDURE INFORMATION: Exam: XR Left Shoulder Exam date and time: 01/23/2021 5:09 PM Age: 35 years old Clinical indication: Injury or trauma; Other: Kicked by cow; Blunt trauma (contusions or hematomas); Shoulder; Left TECHNIQUE: Imaging protocol: XR Left shoulder. Views: 2 or more views. COMPARISON: CR Chest 1 [place] [id number] 05/12/2019 1:42 PM FINDINGS: Bones/joints: Normal. Soft tissues: Normal. XR/XR shoulder LT min 2V* [id number] IMPRESSION: No acute findings. Dictated By: Derrick Bonner Signed By: Derrick Bonner Signed Date/Time: 01/23/211928 DD/ [address] [facility] [address] [place] [address]78 XRay Report Signed Patient: Arabella Carrion Unit #: [id number] : 1985 Age/Sex: 35 / F ADM Date: 01/23/21 Loc: ER Room/Bed: Attending Dr: Ordering Provider/Ordering MD: Dakota Arenas Date of Service: 01/23/21 Procedure(s): XR elbow LT min 3V* 25242 Accession Number(s): [id number] Report Number: [id number] PROCEDURE INFORMATION: Exam: XR Left Elbow Exam date and time: 01/23/2021 5:09 PM Age: 35 years old Clinical indication: Injury or trauma; Other: Kicked by cow; Blunt trauma (contusions or hematomas); Elbow; Left TECHNIQUE: Imaging protocol: XR Left elbow. Views: 3 or more views. COMPARISON: CR XR shoulder LT min 2V* [id number] 01/23/2021 5:11 PM FINDINGS: Bones/joints: Normal. Soft tissues: Normal. XR/XR elbow LT min 3V* [id number] IMPRESSION: No acute findings. Dictated By: Derrick Bonner Signed By: Derrick Bonner Signed Date/Time: 01/23/211928 DD/ 26 Discharge Plan Discharge Patient Disposition: Home Clinical Impression: Contusion of elbow, left Qualifiers: Encounter type: initial encounter Qualified Code(s): S50.02XA - Contusion of left elbow, initial encounter Condition: Stable Prescriptions: No Action prenat.vits,aga,adg-[id number] Tablet 1 tab PO DAILY RF: 0 gabapentin 300 mg capsule 300 mg PO TID RF: 0 sertraline [Zoloft] 100 mg tablet 200 mg PO DAILY Qty: 60 RF: 2 buspirone 10 mg tablet 20 mg PO TID Qty: 180 RF: 2 bupropion HCl [Wellbutrin XL] 150 mg tablet extended release 24 hr 150 mg PO QAM Qty: 30 RF: 2 trazodone 50 mg tablet 100 mg PO .HS PRN (Reason: insomnia) Qty: 60 RF: 2 Discharge Orders: Discharge ED (Routine); Ordered 01/23/21 Ordered By: Dakota Deepa Referrals: Alvaro Swanson MD [Primary Care Provider] - Discharge Diet: Regular Discharge Activity: Increase activity as tolerated Patient Instructions: Contusion in Adults (ED) Activity Restrictions/Additional Instructions: Follow-up with medical provider as directed in 7-10 days. Take medications as prescribed. Wear shoulder sling for couple days to allow the left elbow to rest and heal. Apply cold pack on elbow to help with swelling. You can also take [id number] Tylenol or ibuprofen to help with pain as well. Return to the ER or your medical provider if condition worsens. Please read and understand discharge instructions. Thank you for choosing [facility] for your healthcare needs today. Please realize this is an emergency room and that we are providing you with a medical screening exam and this may not be complete and all inclusive of all the testing and or work up that you may need to determine your ailment or severity of your illness. It is very important that you follow up as instructed or that you return to the Emergency Department should you have concerns or if your condition changes or worsens in any way. Coding Level of Care Code ED Premium Card Cancellation Clerk for Todd Fwd Exam Comprehensive
[2021-01-23 19:19] VITALS: BP 116/81; PULSE 71; O2SAT 99
[2021-01-23] MEDS: HYDROcodone-acetaminophen 5-325 mg Tablet 1 TAB PO (19:51)
[2021-01-23 20:37] VITALS: BP 126/93; PULSE 69; O2SAT 99
== END 2021-01-23 20:39 | disposition home or self-care (01) ==
PROVIDERS: Emergency Provider Physician Assistant; PCP Family Medicine
DX: S50.02XA Contusion of left elbow, initial encounter (principal); F17.210 Nicotine dependence, cigarettes, uncomplicated; W55.22XA Struck by cow, initial encounter
CPT/HCPCS: 73030; 73080; 99283

== ENCOUNTER → 2021-01-24 08:20 | Outpatient (BNVA) | payer BC, OTHER, SELFPAY | PROVIDERS: Visit Provider Counselor Mental Health | DX: S06.9X9A Unspecified intracranial injury with loss of consciousness of unspecified duration, initial encounter (principal); F43.12 Post-traumatic stress disorder, chronic; F41.1 Generalized anxiety disorder; F33.2 Major depressive disorder, recurrent severe without psychotic features | CPT/HCPCS: 90834 ==

== ENCOUNTER → 2021-01-31 08:53 | Outpatient (BNVA) | payer BC, OTHER, SELFPAY | PROVIDERS: Visit Provider Counselor Mental Health | DX: S06.9X9A Unspecified intracranial injury with loss of consciousness of unspecified duration, initial encounter (principal); F43.12 Post-traumatic stress disorder, chronic; F41.1 Generalized anxiety disorder; F33.2 Major depressive disorder, recurrent severe without psychotic features | CPT/HCPCS: 90834 ==

== ENCOUNTER → 2021-02-07 08:01 | Outpatient (BNVA) | payer BC, OTHER, SELFPAY | PROVIDERS: Visit Provider Counselor Mental Health | DX: S06.9X9A Unspecified intracranial injury with loss of consciousness of unspecified duration, initial encounter (principal); F43.12 Post-traumatic stress disorder, chronic; F41.1 Generalized anxiety disorder; F33.2 Major depressive disorder, recurrent severe without psychotic features | CPT/HCPCS: 90834 ==

== ENCOUNTER → 2021-03-01 09:13 | Outpatient (BNVA) | payer BC, OTHER, SELFPAY | PROVIDERS: Visit Provider Counselor Mental Health | DX: S06.9X9A Unspecified intracranial injury with loss of consciousness of unspecified duration, initial encounter (principal); F43.12 Post-traumatic stress disorder, chronic; F41.1 Generalized anxiety disorder; F33.2 Major depressive disorder, recurrent severe without psychotic features | CPT/HCPCS: 90834 ==

== ENCOUNTER → 2021-03-07 09:01 | Outpatient (BNVA) | payer BC, OTHER, SELFPAY | PROVIDERS: Visit Provider Counselor Mental Health | DX: S06.9X9A Unspecified intracranial injury with loss of consciousness of unspecified duration, initial encounter (principal); F43.12 Post-traumatic stress disorder, chronic; F41.1 Generalized anxiety disorder; F33.2 Major depressive disorder, recurrent severe without psychotic features | CPT/HCPCS: 90834 ==

== ENCOUNTER → 2021-03-21 08:56 | Outpatient (BNVA) | payer BC, OTHER, SELFPAY | PROVIDERS: Visit Provider Counselor Mental Health | DX: S06.9X9A Unspecified intracranial injury with loss of consciousness of unspecified duration, initial encounter (principal); F43.12 Post-traumatic stress disorder, chronic; F41.1 Generalized anxiety disorder; F33.2 Major depressive disorder, recurrent severe without psychotic features | CPT/HCPCS: 90834 ==

== ENCOUNTER → 2021-03-24 07:43 | Outpatient (BNVA) | payer BC, OTHER, SELFPAY | PROVIDERS: Visit Provider Psychiatry & Neurology Psychiatry | DX: F43.12 Post-traumatic stress disorder, chronic (principal); F41.1 Generalized anxiety disorder; F33.2 Major depressive disorder, recurrent severe without psychotic features; S06.9X9A Unspecified intracranial injury with loss of consciousness of unspecified duration, initial encounter | CPT/HCPCS: 99214 ==

== ENCOUNTER → 2021-03-28 08:53 | Outpatient (BNVA) | payer BC, OTHER, SELFPAY | PROVIDERS: Visit Provider Counselor Mental Health | DX: S06.9X9A Unspecified intracranial injury with loss of consciousness of unspecified duration, initial encounter (principal); F43.12 Post-traumatic stress disorder, chronic; F41.1 Generalized anxiety disorder; F33.2 Major depressive disorder, recurrent severe without psychotic features | CPT/HCPCS: 90834 ==

== ENCOUNTER → 2021-04-04 08:55 | Outpatient (BNVA) | payer BC, OTHER, SELFPAY | PROVIDERS: Visit Provider Counselor Mental Health | DX: S06.9X9A Unspecified intracranial injury with loss of consciousness of unspecified duration, initial encounter (principal); F43.12 Post-traumatic stress disorder, chronic; F41.1 Generalized anxiety disorder; F33.2 Major depressive disorder, recurrent severe without psychotic features | CPT/HCPCS: 90834 ==

== ENCOUNTER → 2021-04-14 08:57 | Outpatient (BNVA) | payer BC, OTHER, SELFPAY | PROVIDERS: Visit Provider Counselor Mental Health | DX: S06.9X9A Unspecified intracranial injury with loss of consciousness of unspecified duration, initial encounter (principal); F43.12 Post-traumatic stress disorder, chronic; F41.1 Generalized anxiety disorder; F33.2 Major depressive disorder, recurrent severe without psychotic features | CPT/HCPCS: 90834 ==

== ENCOUNTER → 2021-04-19 09:00 | Outpatient (BNVA) | payer BC, OTHER, SELFPAY | PROVIDERS: Visit Provider Counselor Mental Health | DX: S06.9X9A Unspecified intracranial injury with loss of consciousness of unspecified duration, initial encounter (principal); F43.12 Post-traumatic stress disorder, chronic; F41.1 Generalized anxiety disorder; F33.2 Major depressive disorder, recurrent severe without psychotic features | CPT/HCPCS: 90834 ==

== ENCOUNTER → 2021-04-26 08:13 | Outpatient (BNVA) | payer BC, OTHER, SELFPAY | PROVIDERS: Visit Provider Counselor Mental Health | DX: F43.12 Post-traumatic stress disorder, chronic; F41.1 Generalized anxiety disorder; F33.2 Major depressive disorder, recurrent severe without psychotic features | CPT/HCPCS: 90834 ==

== ENCOUNTER → 2021-05-03 08:58 | Outpatient (BNVA) | payer BC, OTHER, SELFPAY | PROVIDERS: Visit Provider Counselor Mental Health | DX: S06.9X9A Unspecified intracranial injury with loss of consciousness of unspecified duration, initial encounter (principal); F43.12 Post-traumatic stress disorder, chronic; F41.1 Generalized anxiety disorder; F33.2 Major depressive disorder, recurrent severe without psychotic features | CPT/HCPCS: 90834 ==

== ENCOUNTER 2021-05-14 06:00 | Outpatient (RCR) | payer BC, SELFPAY | END 2021-06-13 23:59 | disposition home or self-care (01) | LOC: TR3 06:00 | PROVIDERS: Referring Provider Psychiatry & Neurology Neurology; Visit Provider Psychiatry & Neurology Neurology | DX: S06.9X9A Unspecified intracranial injury with loss of consciousness of unspecified duration, initial encounter (principal); F41.9 Anxiety disorder, unspecified; R47.89 Other speech disturbances; X58.XXXA Exposure to other specified factors, initial encounter | CPT/HCPCS: 92507; 92523; 92526; 92610; 97110; 97116; 97163; 97167; 97530 ==

== ENCOUNTER → 2021-05-18 08:57 | Outpatient (BNVA) | payer BC, OTHER, SELFPAY | PROVIDERS: Visit Provider Counselor Mental Health | DX: S06.9X9A Unspecified intracranial injury with loss of consciousness of unspecified duration, initial encounter (principal); F43.12 Post-traumatic stress disorder, chronic; F41.1 Generalized anxiety disorder; F33.2 Major depressive disorder, recurrent severe without psychotic features | CPT/HCPCS: 90834 ==

== ENCOUNTER 2021-06-14 06:00 | Outpatient (RCR) | payer BC, MEDICAID, SELFPAY | END 2021-07-11 23:59 | disposition home or self-care (01) | LOC: TR3 06:00 | PROVIDERS: Referring Provider Psychiatry & Neurology Neurology; Visit Provider Psychiatry & Neurology Neurology | DX: F41.9 Anxiety disorder, unspecified (principal); R47.89 Other speech disturbances; S06.9X9A Unspecified intracranial injury with loss of consciousness of unspecified duration, initial encounter; X58.XXXA Exposure to other specified factors, initial encounter | CPT/HCPCS: 92507; 97110; 97164; 97167; 97530 ==

== ENCOUNTER 2021-06-14 11:22 | Outpatient (CLI) | payer BC, MEDICAID, SELFPAY ==
--- NOTE | 2021-06-14 11:29 | XR_ITS ---
WS: [id number] XR lumbar spine min 4V 77798 REASON FOR EXAM: M47.816 - Spondylosis without myelopathy or radiculopathy... FINDINGS: Normal lumbar spine curvature. No significant compression deformity or other focal vertebral body abnormality. The intervertebral disc spaces are relatively well-preserved. No spondylolysis or spondylolisthesis identified. XR/XR lumbar spine min 4V 31289 IMPRESSION: No significant abnormality.
--- NOTE | 2021-06-14 11:29 | XR_ITS ---
WS: [id number] XR cervical spine 4-5V 46057 REASON FOR EXAM: M47.812 - Spondylosis without myelopathy or radiculopathy... FINDINGS: Straightening of the normal lordosis of the cervical spine with slight reversal C5-C7. No significant compression deformity or other focal vertebral body abnormality. No significant uncinate spurring. Intervertebral disc spaces relatively well-preserved. No significant listhesis. XR/XR cervical spine 4-5V 93325 IMPRESSION: No significant abnormality.
== END 2021-06-14 11:23 | disposition home or self-care (01) ==
LOC: RAD 11:26
PROVIDERS: Visit Provider Anesthesiology Pain Medicine
DX: M47.812 Spondylosis without myelopathy or radiculopathy, cervical region (principal); M47.816 Spondylosis without myelopathy or radiculopathy, lumbar region
CPT/HCPCS: 72050; 72110

== ENCOUNTER 2021-07-12 06:00 | Outpatient (RCR) | payer BC, MEDICAID, SELFPAY | END 2021-08-11 23:59 | disposition home or self-care (01) | LOC: TR3 06:00 | PROVIDERS: Referring Provider Psychiatry & Neurology Neurology; Visit Provider Psychiatry & Neurology Neurology | DX: S06.9X9A Unspecified intracranial injury with loss of consciousness of unspecified duration, initial encounter (principal); F41.9 Anxiety disorder, unspecified; R47.89 Other speech disturbances; R41.3 Other amnesia; X58.XXXA Exposure to other specified factors, initial encounter | CPT/HCPCS: 92507; 92523; 97110; 97167; 97530 ==

== ENCOUNTER 2021-07-29 06:00 | Outpatient (RCR) | payer BC, MEDICAID, SELFPAY | END 2021-08-11 23:59 | disposition home or self-care (01) | LOC: SST 06:00 | PROVIDERS: Referring Provider Psychiatry & Neurology Neurology; Visit Provider Psychiatry & Neurology Neurology | DX: R13.10 Dysphagia, unspecified (principal) | CPT/HCPCS: 92612 ==

== ENCOUNTER 2021-08-12 06:00 | Outpatient (RCR) | payer BC, MEDICAID, SELFPAY | END 2021-09-10 23:59 | disposition home or self-care (01) | LOC: TR3 06:00 | PROVIDERS: Referring Provider Psychiatry & Neurology Neurology; Visit Provider Psychiatry & Neurology Neurology | DX: F41.9 Anxiety disorder, unspecified (principal); R47.89 Other speech disturbances; S06.9X9D Unspecified intracranial injury with loss of consciousness of unspecified duration, subsequent encounter; R41.3 Other amnesia | CPT/HCPCS: 92507; 92526; 97110; 97530 ==

== ENCOUNTER 2021-08-15 21:48 | Emergency (ER) | payer BC, MEDICAID, SELFPAY ==
[2021-08-15 21:57] VITALS: BP 122/66; PULSE 79; RESP 17; TEMP 37.2; O2SAT 95; BMI 28.8
--- NOTE | 2021-08-15 22:06 | ECG_ITS ---
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 Measurements Intervals [place] Rate: 82 P: 61 RI: 161 QRS: 70 QRSD: 97 T: 58 QT: 395 QTc: 464 Interpretive Statements SINUS RHYTHM WITH SINUS ARRHYTHMIA No previous ECG available for comparison Electronically Signed On 08-16-2021 9:19:26 CDT by Derrick Wolfe M.D. [id number]
--- NOTE | 2021-08-15 22:06 | CTR_ITS ---
PROCEDURE INFORMATION: Exam: CT Head Without Contrast Exam date and time: 08/15/2021 10:13 PM Age: 35 years old Clinical indication: Dizziness and hemiplegia and hemiparesis; Patient HX: HX of head injury; Additional info: Symptoms of acute stroke TECHNIQUE: Imaging protocol: Computed tomography of the head without contrast. Radiation optimization: All CT scans at this facility use at least one of these dose optimization techniques: automated exposure control; mA and/or kV adjustment per patient size (includes targeted exams where dose is matched to clinical indication); or iterative reconstruction. Other technique: STROKE PROTOCOL was implemented. COMPARISON: CR XR cervical spine 4-5V 75450 06/14/2021 11:59 AM RADIATION DOSE METRICS: Total DLP (mGy-cm): 720.2 FINDINGS: Brain: Normal. No hemorrhage. Unremarkable white matter. No mass effect. Cerebral ventricles: No ventriculomegaly. Paranasal sinuses: Visualized sinuses are unremarkable. No fluid levels. Mastoid air cells: Visualized mastoid air cells are well aerated. Bones/joints: Unremarkable. No acute fracture. Soft tissues: Unremarkable. CT/CT head wo con* [id number] IMPRESSION: No acute intracranial abnormality. ASSESSMENT: ASPECTS ([place] Stroke Program Early CT Score) is 10.
[2021-08-15 22:21] VITALS: BP 129/94; PULSE 98; RESP 22; O2SAT 93
--- NOTE | 2021-08-15 22:34 | W.ED.NEUROSD ---
HPI - Neuro Symptoms/Deficit General: Chief Complaint: Neuro Symptoms/Deficit Stated Complaint: dizziness, numness in face Time Seen by Provider: 08/15/21 22:06 Source: patient Mode of arrival: ambulatory Limitations: no limitations History of Present Illness: 35-year-old female has a history of subarachnoid hemorrhage back in 2019 from an injury has a history of headaches from that. States she has taken a bath roughly at 8:00 started having a headache is typical with her migraines and then started having some slurred speech right-sided facial droop and right-sided weakness. She is having a difficulty time talking here denies any vomiting or diarrhea denies any chest pain. Associated symptoms: Reports headache(s); Deny chest pain, nausea or vomiting Review of Systems Const: Denies: fever(s), chills, body aches or change in appetite Eyes: Denies: blurry vision or eye discomfort ENMT: Denies: throat pain or dental pain Card: Denies: chest pain Resp: Denies: dyspnea GI: Denies: abdominal pain, nausea, vomiting or diarrhea : Denies: dysuria Musc: Denies: neck pain or back pain Skin/Breast: Denies: rash Neuro: Reports: headache(s), weakness in extremities and difficulty walking Psych: Denies: depression [place]/Lymph: Denies: easy bruising All/Imm: Denies: urticaria PFSH ED PFSH: Medical History Aftercare following surgery of the genitourinary system examination following vaginal delivery Psychiatric care Supervision of high risk in third trimester Family History Father Hypertension Heart attack, Onset Age: 55 Hyperlipidemia Mother Thyroid condition Grandmother Breast cancer maternal Stroke paternal Family/Other Breast cancer maternal great aunt Grandfather Diabetes paternal Denies family history of Clotting disorder Anesthesia complication Bleeding disorder Social History Smoking and tobacco status: current every day smoker cigarettes [ Other cigarette details: 1 cigarette/day ] Alcohol intake: former Female Reproductive History: Date of last menstrual period: 01/12/21 NIH stroke score NIHSS: Level Of Consciousness - 1a: 0 Level Of Consciousness Questions - 1b: Both Correct Level Of Consciousness Commands - 1c: Both Correct Best Gaze - 2: Normal Visual [place] - 3: No Visual Loss Facial Palsy - 4: Minor Paralysis Motor Arm Right - 5: Drift Motor Arm Left - 5: No Drift Motor Leg Right - 6: Drift Motor Leg Left - 6: No Drift Limb Ataxia - 7: Absent Sensory - 8: Normal Best Language - 9: Mild/Moderate Aphasia Dysarthia - 10: Mild/Moderate Dysarthia Extinction And Inattention - 11: 0 Score: Total Score: 5 Physical Exam Const: COMMON NORMALS: no acute distress, patient oriented x3, healthy appearing and alert HENMT: COMMON NORMALS: normocephalic and atraumatic HEAD & SCALP: normocephalic and atraumatic Eye: COMMON NORMALS: Equal, round and reactive pupils present and EOMs intact bilaterally PUPIL: Yes Equal, round and reactive pupils present Neck/C-Spine: COMMON NORMALS: full ROM and supple Chest: COMMONS NORMALS: normal inspection of the chest and normal palpation of entire chest wall Resp: COMMON NORMALS: normal respiratory effort, No retractions, No use of accessory muscles and clear to auscultation bilaterally AUSCULTATION: clear to auscultation bilaterally Cardio: COMMON NORMALS: regular rate, regular rhythm and No murmurs present (Cardio) RATE: regular rate RHYTHM: regular rhythm GI: COMMON NORMALS: Normal to inspection, nondistended, normoactive bowel sounds present, Soft to palpation, non-tender and no masses PALPATION: Yes Soft to palpation Extremity: COMMON NORMALS: normal to inspection and full ROM Neuro: COMMON NORMALS: patient oriented x3 SENSORIUM/ORIENTATION: Yes alert CRANIAL NERVES: Yes CN normal except as noted SPEECH: abnormal speech Psych: COMMON NORMALS: mental status grossly normal, Normal thought process present and cooperative THOUGHT PROCESS: Normal thought process present Skin: COMMON NORMALS: no rashes or lesions noted and no wounds GENERAL SKIN EXAM: no rashes or lesions noted Course Reevaluation(s): Reevaluation #1: Patient was evaluated by Dr. Anupama mtz who believes is likely migraine with aura patient also refused TPA states she is scared that she did have her previous subarachnoid hemorrhage. She does have some right-sided deficits chronically from that as well her speech is actually improving here as well. We will treat her headache and reevaluate. Time: 22:25 Vital Signs: Vital signs: Vital Signs Temperature 98.9 F 08/15/21 21:57 Pulse Rate 77 08/15/21 23:30 Respiratory Rate 18 08/15/21 23:30 Blood Pressure 118/72 08/15/21 23:30 Pulse Oximetry 97 08/15/21 23:30 MDM - Neuro Symptoms/Deficit Medical Decision Making Patient presents here with headache along with some right-sided weakness she does have a history of migraines patient was evaluated by neurologist who believes this is likely migraine with aura she does have some chronic weakness as well from her previous brain injury. She feels improved here after her migraine is improved she would like to go home I feel she is stable for discharge we will get her follow-up with Dr. Spaulding she is return if worsening Lab Data : 08/15/21 22:20 08/15/21 22:[address] 08/15/21 22:06 IMPRESSION: No acute intracranial abnormality. ASSESSMENT: ASPECTS ([place] Stroke Program Early CT Score) is 10. Laboratory Results WBC 16.5 10^3/uL (4.0-10.0) H 08/15/21 22:20 RBC 4.08 10^6/uL (4.1-5.3) L 08/15/21 22:20 Hgb 13.2 g/dL (11.5-15.3) 08/15/21 22:20 Hct 40.5 % (37.0-47.0) 08/15/21 22:20 MCV 99.3 fl (81-99) H 08/15/21 22:20 MCH 32.4 pg (28.0-34.0) 08/15/21 22:20 MCHC 32.6 g/dL (30.0-36.0) 08/15/21 22:20 RDW 13.1 % (12.1-15.1) 08/15/21 22:20 Plt Count 448 10^3/cmm (130-400) H 08/15/21 22:20 MPV 10.1 fL (7.4-10.4) 08/15/21 22:20 Neut % (Auto) 60.5 % 08/15/21 22:20 Lymph % (Auto) 27.9 % 08/15/21 22:20 [place] % (Auto) 8.2 % 08/15/21 22:20 Eos % (Auto) 2.3 % 08/15/21 22:20 Baso % (Auto) 0.7 % 08/15/21 22:20 Neut # (Auto) 9.98 10^3/uL (1.8-7.7) H 08/15/21 22:20 Lymph # (Auto) 4.6 10^3/uL (0.8-4.8) 08/15/21 22:20 [place] # (Auto) 1.4 10^3/uL (0.2-0.9) H 08/15/21 22:20 Eos # (Auto) 0.4 10^3/uL (0.0-0.8) 08/15/21 22:20 Baso # (Auto) 0.1 10^3/uL (0.0-0.1) 08/15/21 22:20 Nucleated RBC % (auto) 0 % 08/15/21 22:20 Nucleated RBCs # 0.0 /100WBC 08/15/21 22:20 PT 11.60 SECONDS (12.1-14.9) L 08/15/21 22:20 INR 0.83 (0.8-1.2) 08/15/21 22:20 APTT 27.5 SECONDS (23.9-36.7) 08/15/21 22:20 Sodium 142 mmol/L (136-145) 08/15/21 22:20 Potassium 4.4 mmol/L (3.5-5.1) 08/15/21 22:20 Chloride 108 mmol/L (98-107) H 08/15/21 22:20 Carbon Dioxide 24 mmol/L (22-29) 08/15/21 22:20 Anion Gap 14.4 (5-19) 08/15/21 22:20 BUN 9 mg/dL (6-20) 08/15/21 22:20 Creatinine 0.7 mg/dL (0.5-0.9) 08/15/21 22:20 GFR Calculation 94.7 mL/min (90-130) 08/15/21 22:20 Glucose 101 mg/dL (65-115) 08/15/21 22:20 POC Glucose 103 mg/dL (70-110) 08/15/21 22:16 Calculated Osmolality 293 mOsm/kg (285-295) 08/15/21 22:20 Calcium 9.4 mg/dL (8.5-10.5) 08/15/21 22:20 Total Bilirubin 0.2 mg/dL (0.15-1.2) 08/15/21 22:20 AST 25 U/L (0-32) 08/15/21 22:20 ALT 20 U/L (0-33) 08/15/21 22:20 Alkaline Phosphatase 103 IU/L (35-105) 08/15/21 22:20 Total Protein 6.7 g/dL (6.6-8.7) 08/15/21 22:20 Albumin 4.4 g/dL (3.5-5.2) 08/15/21 22:20 Globulin 2.3 g/dL (1.3-4.6) 08/15/21 22:20 HCG, Qual Negative (Negative) 08/15/21 22:20 Urine Color Other (Yellow) 08/15/21 23:31 Urine Appearance Hazy (CLEAR) A 08/15/21 23:31 Urine pH 5 (5-7) 08/15/21 23:31 Ur Specific [place] 1.010 (1.005-1.030) 08/15/21 23:31 Urine Protein 2+ (Negative) H 08/15/21 23:31 Urine Glucose (UA) Norm (Normal) 08/15/21 23:31 Urine Ketones Negative (Negative) 08/15/21 23:31 Urine Blood 3+ (Negative) H 08/15/21 23:31 Urine Nitrate Negative (Negative) 08/15/21 23:31 Urine Bilirubin Neg (Negative) 08/15/21 23:31 Urine Urobilinogen Norm mg/dL (Negative) 08/15/21 23:31 Ur Leukocyte Esterase 1+ (Negative) H 08/15/21 23:31 Urine RBC Too numerous to cnt /hpf (0-2) H 08/15/21 23:31 Urine WBC 5-10 /hpf (0-5) H 08/15/21 23:31 Ur Squamous Epith Cells 0-4 /hpf (0-5) H 08/15/21 23:31 Amorphous Sediment Not Reportable 08/15/21 23:31 Urine Bacteria Trace /hpf (NONE) 08/15/21 23:31 Urine Opiates Screen Negative ng/mL (Negative) 08/15/21 23:31 Ur Barbiturates Screen Positive ng/mL (Negative) H 08/15/21 23:31 Ur Phencyclidine Scrn Negative ng/mL (Negative) 08/15/21 23:31 Ur Amphetamines Screen Negative ng/mL (Negative) 08/15/21 23:31 U Benzodiazepines Scrn Negative ng/mL (Negative) 08/15/21 23:31 Urine Cocaine Screen Negative ng/mL (Negative) 08/15/21 23:31 U Marijuana (THC) Screen Negative ng/mL (Negative) 08/15/21 23:31 EKG Data EKG 1: I personally reviewed and interpreted this EKG as follows: EKG interpretation date: 08/15/21 EKG interpretation time: 22:19 Interpretation: nsr hr [address] or t wave abnormalities qrs 97 qtc 434 Discharge Plan Discharge Patient Disposition: Home Clinical Impression: Headache, Weakness Condition: Stable Prescriptions: No Action prenat.vits,aga,bna-[id number] Tablet 1 tab PO DAILY 0RF gabapentin 300 mg capsule 300 mg PO TID 0RF meclizine 25 mg tablet 25 mg PO BID 0RF tizanidine 2 mg capsule 2 mg PO BID PRN0RF bupropion HCl [Wellbutrin XL] 150 mg tablet extended release 24 hr 150 mg PO QAM Qty: 30 2RF buspirone 10 mg tablet 20 mg PO TID Qty: 180 2RF sertraline [Zoloft] 100 mg tablet 200 mg PO DAILY Qty: 60 2RF trazodone 50 mg tablet 100 mg PO .HS PRN (Reason: insomnia) Qty: 60 2RF Discharge Orders: Discharge ED (Routine); Ordered 08/16/21 Ordered By: Daija Mcnulty Discharge Diet: Advance as tolerated Discharge Activity: Resume usual activity Patient Instructions: General Headache (ED) Coding Level of Care Code ED [employer] Coatings Installer for Todd Fwd Exam Comprehensive
[2021-08-15 22:35] LABS: Basophils # 0.1 10^3/uL (0.0-0.1); Basophils % 0.7 %; Eosinophils # 0.4 10^3/uL (0.0-0.8); Eosinophils % 2.3 %; Hematocrit 40.5 % (37.0-47.0); Hemoglobin 13.2 g/dL (11.5-15.3); Lymphocytes # 4.6 10^3/uL (0.8-4.8); Lymphocytes % 27.9 %; Mean Corpuscular HGB Conc 32.6 g/dL (30.0-36.0); Mean Corpuscular Hemoglobin 32.4 pg (28.0-34.0); Mean Corpuscular Volume 99.3 fl (81-99); Mean Platelet Volume 10.1 fL (7.4-10.4); Monocytes # 1.4 10^3/uL (0.2-0.9); Monocytes % 8.2 %; Neutrophils # 9.98 10^3/uL (1.8-7.7); Neutrophils % 60.5 %; Nucleated Red Blood Cells % 0 %; Platelet Count 448 10^3/cmm (130-400); Red Blood Count 4.08 10^6/uL (4.1-5.3); Red Cell Distribution Width 13.1 % (12.1-15.1); White Blood Count 16.5 10^3/uL (4.0-10.0)
[2021-08-15 22:35] LABS: Glucose Point of Care 103 mg/dL (70-110)
[2021-08-15 22:55] VITALS: BP 129/94; PULSE 81; RESP 21; O2SAT 94
[2021-08-15 22:55] LABS: Alanine Aminotransferase 20 U/L (0-33); Albumin Level 4.4 g/dL (3.5-5.2); Alkaline Phosphatase 103 IU/L (35-105); Anion Gap 14.4 (5-19); Aspartate Amino Transferase 25 U/L (0-32); Blood Urea Nitrogen 9 mg/dL (6-20); Calcium 9.4 mg/dL (8.5-10.5); Carbon Dioxide 24 mmol/L (22-29); Chloride 108 mmol/L (98-107); Globulin 2.3 g/dL (1.3-4.6); Glomerular Filtration Rate 94.7 mL/min (90-130); Glucose 101 mg/dL (65-115); Osmolality Calculated 293 mOsm/kg (285-295); Potassium 4.4 mmol/L (3.5-5.1); Sodium 142 mmol/L (136-145); Total Bilirubin 0.2 mg/dL (0.15-1.2); Total Protein 6.7 g/dL (6.6-8.7)
[2021-08-15 23:07] LABS: HCG, Serum Qual Negative (Negative)
[2021-08-15 23:08] LABS: INR 0.83 (0.8-1.2); Partial Thromboplastin Time 27.5 SECONDS (23.9-36.7)
[2021-08-15 23:16] LABS: Slide Review Slide Review Perform
[2021-08-15] MEDS: ondansetron 2 mg/ML SDV 2 mL 4 MG IVP (23:23)
[2021-08-15] MEDS: valproic acid inj 500 MG in sodium chloride 0.9% 50 ML 55 MG IV (23:25)
[2021-08-15 23:30] VITALS: BP 118/72; PULSE 77; RESP 18; O2SAT 97
[2021-08-15 23:47] LABS: Add Urine Microscopic? YES; Bilirubin Urine Neg (Negative); Blood Urine 3+ (Negative); Glucose Urine UA Norm (Normal); Ketones Urine Negative (Negative); Leukocyte Esterase Urine 1+ (Negative); Nitrate Urine Negative (Negative); Protein Urine 2+ (Negative); Urine Appearance Hazy (CLEAR); Urine Color Other (Yellow); Urobilinogen Urine Norm (Negative); pH Urine 5 (5-7)
[2021-08-15 23:48] LABS: Add Urine Culture? Yes; Amphetamines Screen Urine Negative (Negative); Bacteria Urine TRACE /hpf; Barbiturates Screen Urine Positive (Negative); Benzodiazepines Screen Urine Negative (Negative); Cocaine Screen Urine Negative (Negative); Opiate Screen Urine Negative (Negative); PCP Screen Urine Negative (Negative); RBC Urine TOO NUMEROUS TO CNT /hpf (0-2); Squamous Epithelial Cell Urine 0-4 /hpf (0-5); THC Screen Urine Negative (Negative)
[2021-08-16] MEDS: ketorolac 30 mg/mL INJ 15 MG IVP (00:15)
[2021-08-16 00:58] VITALS: BP 109/65; PULSE 73; RESP 17; O2SAT 97
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
--- NOTE | 2021-08-16 11:03 | DCPLANNER ---
Addendum entered by Ashia Car 10/07/21 17:19: Patient had a follow up appointment scheduled for 10.06.21 with neurology - patient did attend appointment. Addendum entered by Ashia Car 08/18/21 08:11: Patient has a follow up appointment scheduled for September at 10:[address] Pollard at neurology. Clinic will call patient with appointment information. Original Note: environmental services project manager had message to schedule a follow up appointment for patient with neurology. environmental services project manager sent patients information to the front staff at neurology. Patients information will be printed and reviewed. Clinic will call patient with appointment information.
== END 2021-08-16 01:02 | disposition home or self-care (01) ==
PROVIDERS: Nurse Practitioner Family; Emergency Provider Emergency Medicine
DX: R51.9 Headache, unspecified (principal); R53.1 Weakness; F17.210 Nicotine dependence, cigarettes, uncomplicated
CPT/HCPCS: 36416; 70450; 80053; 80306; 81001; 82962; 84703; 85025; 85610; 85730; 87086; 93005; 96365; 96366; 96375; 99284; J1885; J2405

== ENCOUNTER 2021-09-14 06:00 | Outpatient (RCR) | payer BC, MEDICAID, SELFPAY | END 2021-10-11 23:59 | disposition home or self-care (01) | LOC: TR3 06:00 | PROVIDERS: PCP Nurse Practitioner Family; Referring Provider Psychiatry & Neurology Neurology; Visit Provider Psychiatry & Neurology Neurology | DX: R47.89 Other speech disturbances (principal); S06.9X9S Unspecified intracranial injury with loss of consciousness of unspecified duration, sequela; X58.XXXS Exposure to other specified factors, sequela | CPT/HCPCS: 92507; 92523; 97110; 97167 ==

== ENCOUNTER 2021-09-14 10:55 | Outpatient (CLI) | payer BC, MEDICAID, SELFPAY ==
--- NOTE | 2021-09-14 11:00 | FL_ITS ---
WS: [id number] MODIFIED BARIUM SWALLOW HISTORY: R13.10 - Dysphagia, unspecified FLUOROSCOPY TIME: 3min [id number] # of spot films: 1 Modified barium swallow was performed by the speech pathologist. Fluoroscopy was provided with the pa tient in a lateral projection. Multiple food consistencies were provided. Patient had a difficult time forming a bolus and initiating the swallowing mechanism during this exam ination. That was pretty consistent with solids and liquids. No aspiration or laryngeal penetration. Patient was able to swallow the barium tablet without difficulty. There are no strictures. FL/FL barium swallow modifd [id number] IMPRESSION: 1. No laryngeal aspiration or penetration. 2. Difficulty forming a food bolus with weakened tongue muscles. Consistent in volving solids and liquids. More difficulty with the more solid components. Please see speech therapist report also for recommendations.
== END 2021-09-14 10:56 | disposition home or self-care (01) ==
LOC: RAD 10:55
PROVIDERS: Visit Provider Nurse Practitioner
DX: R13.10 Dysphagia, unspecified (principal)
CPT/HCPCS: 74230; 92611

== ENCOUNTER → 2021-09-28 10:19 | Outpatient (BNVA) | payer BC, SELFPAY | PROVIDERS: PCP Nurse Practitioner Family; Visit Provider Nurse Practitioner | DX: R29.90 Unspecified symptoms and signs involving the nervous system (principal) | CPT/HCPCS: 80053; 85025 ==

== ENCOUNTER 2021-10-05 07:49 | Outpatient (CLI) | payer BC, MEDICAID, SELFPAY ==
--- NOTE | 2021-10-05 08:00 | MR_ITS ---
WS: [id number] MRI HEAD WITH CONTRAST TECHNIQUE: Sagittal T1, T2 axial, T2 axial FLAIR, axial susceptibility weighted imaging, axial diffus ion weighted images, and coronal T2 images were obtained. Pre and post-T1 axial and post T1 coronal i mages. ADC and FSPGR images. CLINICAL INFORMATION: G43.711 - Chronic migraine without aura, intractable, wit... COMPARISON: CT August 15, 2021 FINDINGS: No evidence of restricted diffusion to suggest acute ischemia. Ventricular system and basal cisterns are patent. Encephalomalacia and gliosis in the LEFT anterior temporal lobe and LEFT parasagittal frontal lobe. A dditional encephalomalacia and gliosis in the RIGHT anterior temporal lobe. Small amount of associate d hemosiderin in the LEFT anterior temporal lobe. Findings compatible with history of prior traumatic brain injury. Normal posterior fossa. Normal vascular flow voids at the skull base. No extra-axial fluid collection s. No evidence of mass or mass effect. Paranasal sinuses and mastoid air cells are well aerated. Smal l amount of hemosiderin in the LEFT anterior temporal lobe Normal optic chiasm and pituitary infundibulum. Mild atrophy hippocampal formations and RIGHT greater than LEFT parahippocampal gyrus. No abnormal gadolinium enhancement. Normal dural venous sinuses. No other significant findings. MR/MR head wo/w con [id number] IMPRESSION: 1. No evidence of restricted diffusion to suggest acute ischemia. 2. Encephalomalacia and gliosis in the anterior LEFT greater than RIGHT tempor al lobes and LEFT parasagittal frontal lobe. Findings compatible with prior tra umatic brain injury. 3. Small amount of hemosiderin in the LEFT anterior temporal lobe. 4. No abnormal gadolinium enhancement. 5. Small retention cyst LEFT maxillary sinus measuring 10 mm. Mastoid air cell s are well aerated. 6. Mild atrophy RIGHT greater than LEFT hippocampal formations and perihippoca mpal gyrus.
[2021-10-05] MEDS: gadobenate dimeglumine 20 mL vial IV (08:57)
== END 2021-10-05 07:50 | disposition home or self-care (01) ==
PROVIDERS: PCP Nurse Practitioner Family; Visit Provider Nurse Practitioner
DX: G93.89 Other specified disorders of brain (principal)
CPT/HCPCS: 36415; 70553

== ENCOUNTER 2021-10-12 06:00 | Outpatient (RCR) | payer BC, MEDICAID, SELFPAY | END 2021-11-10 23:59 | disposition home or self-care (01) | LOC: TR3 06:00 | PROVIDERS: PCP Nurse Practitioner Family; Referring Provider Psychiatry & Neurology Neurology; Visit Provider Psychiatry & Neurology Neurology | DX: R13.10 Dysphagia, unspecified (principal) | CPT/HCPCS: 92507 ==

== ENCOUNTER 2021-11-11 06:00 | Outpatient (RCR) | payer BC, MEDICAID, SELFPAY | END 2021-12-11 23:59 | disposition home or self-care (01) | LOC: TR3 06:00 | PROVIDERS: PCP Nurse Practitioner Family; Visit Provider Psychiatry & Neurology Neurology | DX: R41.3 Other amnesia (principal); R47.89 Other speech disturbances | CPT/HCPCS: 92507 ==

== ENCOUNTER → 2021-11-29 08:12 | Outpatient (BNVA) | payer MEDICAID, SELFPAY | PROVIDERS: PCP Nurse Practitioner Family; Visit Provider Specialist | DX: G43.711 Chronic migraine without aura, intractable, with status migrainosus (principal); Z87.820 Personal history of traumatic brain injury | CPT/HCPCS: 99214 ==

== ENCOUNTER → 2022-02-06 09:26 | Outpatient (BNVA) | payer MEDICAID, SELFPAY | PROVIDERS: PCP Nurse Practitioner Family; Visit Provider Anesthesiology Pain Medicine | DX: G89.29 Other chronic pain (principal); M79.18 Myalgia, other site; M54.2 Cervicalgia; M54.50 Low back pain, unspecified; R20.0 Anesthesia of skin; R20.2 Paresthesia of skin; M25.511 Pain in right shoulder; M25.512 Pain in left shoulder; F17.210 Nicotine dependence, cigarettes, uncomplicated | CPT/HCPCS: 20553; 99213 ==